=== PATIENT | male | born 1975 | race Caucasian/White ===

== ENCOUNTER 2019-11-20 18:17 | Emergency (ER) | payer OTHER ==
[~2019-11-20] VITALS: Ht 185.4 cm; Wt 145.1 kg
[2019-11-20] MEDS ORDERED: COZAAR50 MG (18:48)
[2019-11-21] MEDS ORDERED: METOCLOPRAMIDE10 M1 PO (07:25)
[2019-11-21] MEDS ORDERED: PEPCID40 MG PO ×2 (07:25→07:26)
== END 2019-11-21 07:39 | disposition home or self-care (01) ==
LOC: ER 18:17
DX: T18.128A Food in esophagus causing other injury, initial encounter (principal); W45.8XXA Other foreign body or object entering through skin, initial encounter; Y93.89 Activity, other specified; Y92.89 Other specified places as the place of occurrence of the external cause; Y99.8 Other external cause status